=== PATIENT | male | born 2000 | race American Indian/Alaskan Native ===

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

== ENCOUNTER 2023-08-08 22:58 | Emergency (ER) | payer MEDICAID, OTHER ==
[2023-08-08] MEDS: Diphtheria,Pertussis(Acell),Tetanus Vaccine 0.5 ML Syringe IM ONE (23:22)
[2023-08-08] MEDS: Acetaminophen 325 MG Tab PO ONE (23:24)
== END 2023-08-09 00:08 | disposition home or self-care (01) ==
LOC: DL.ED 22:58
DX: S00.03XA Contusion of scalp, initial encounter (principal); S00.83XA Contusion of other part of head, initial encounter; Z23 Encounter for immunization; V43.52XA Car driver injured in collision with other type car in traffic accident, initial encounter
CPT/HCPCS: 70450; 70486; 90471; 90715; 99284; A9270

== ENCOUNTER 2023-11-29 06:03 | Emergency (ER) | payer MEDICAID ==
[2023-11-29] MEDS: Ketorolac 30 MG/ML SDV IM ONE (06:25)
== END 2023-11-29 06:37 | disposition home or self-care (01) ==
LOC: DL.ED 06:03
DX: M94.0 Chondrocostal junction syndrome [Tietze] (principal)
CPT/HCPCS: 96372; 99282; 99283; J1885

== ENCOUNTER 2024-12-15 02:41 | Emergency (ER) | payer MEDICAID | END 2024-12-15 03:27 | disposition home or self-care (01) | LOC: DL.ED 02:41 | DX: Z11.3 Encounter for screening for infections with a predominantly sexual mode of transmission (principal); Z72.51 High risk heterosexual behavior; F17.210 Nicotine dependence, cigarettes, uncomplicated | CPT/HCPCS: 87491; 87591; 99282; 99283 ==

== ENCOUNTER 2025-04-05 05:04 | Emergency (ER) | payer MEDICAID ==
[2025-04-05] MEDS: Benzocaine/Cetylpyridinium/Menthol Lozenge MUCMEM STA (05:53)
== END 2025-04-05 06:02 | disposition home or self-care (01) ==
LOC: DL.ED 05:04
DX: J02.9 Acute pharyngitis, unspecified (principal)
CPT/HCPCS: 87081; 87428; 87430; 99283; A9270